=== PATIENT | female | born 1990 | race Two or more races ===

== ENCOUNTER 2016-11-21 00:33 | Emergency (ER) | payer SELFPAY ==
[~2016-11-21] VITALS: Ht 154.9 cm; Wt 90.7 kg
[2016-11-21 00:47] VITALS: BP 113/67
== END 2016-11-21 01:15 | disposition home or self-care (01) ==
LOC: ER 00:37
DX: J02.9 Acute pharyngitis, unspecified (principal)
CPT/HCPCS: 81025

== ENCOUNTER 2017-11-14 08:55 | Emergency (ER) | payer OTHER ==
[~2017-11-14] VITALS: Ht 157.5 cm; Wt 90.7 kg
[2017-11-14 09:12] VITALS: BP 124/87
== END 2017-11-14 11:34 | disposition home or self-care (01) ==
LOC: ER 08:55
DX: H66.93 Otitis media, unspecified, bilateral (principal); J03.90 Acute tonsillitis, unspecified
CPT/HCPCS: 71045

== ENCOUNTER 2018-06-13 19:25 | Emergency (ER) | payer OTHER ==
[~2018-06-13] VITALS: Ht 157.5 cm; Wt 90.7 kg
[2018-06-13 20:00] VITALS: BP 120/79
== END 2018-06-13 20:04 | disposition home or self-care (01) ==
LOC: ER 19:25
DX: J02.9 Acute pharyngitis, unspecified (principal); H66.92 Otitis media, unspecified, left ear

== ENCOUNTER 2020-05-16 19:36 | Emergency (ER) | payer MEDICAID, OTHER ==
[~2020-05-16] VITALS: Ht 167.6 cm; Wt 99.8 kg
[2020-05-16 20:38] VITALS: BP 138/81
== END 2020-05-16 23:15 | disposition home or self-care (01) ==
LOC: ER 19:36
DX: R05 Cough (principal); R06.02 Shortness of breath; R43.0 Anosmia; Z20.828 Contact with and (suspected) exposure to other viral communicable diseases
CPT/HCPCS: 36415; 71045; 87426

== ENCOUNTER 2025-04-08 16:20 | Emergency (ER) | payer MEDICAID ==
[~2025-04-08] VITALS: Ht 154.9 cm; Wt 110.0 kg
[2025-04-08 18:13] VITALS: BP 130/74; PULSE 87; RESP 16; TEMP 97.9; O2SAT 99
--- NOTE | 2025-04-08 18:23 | ED.PDOC ---
ADOBE DEVELOPER HPI Comments PT PRESENTED TO THE ER D/T VAGINAL DISCHARGE. PT REPORTS THAT SHE IS 14 WEEKS AND OVER THE PAST 2 DAYS HAS HAD A "BROWN DISCHARGE WHEN SHE WIPES" SHARP PAIN IN HIP CREASE. DENIES ANY CRAMPING OR BLEEDING. Chief Complaint: Vaginal Discharge Time Seen by MD: 18:10 Reviewed Notes: Nurses Notes, Medications, Allergies Allergies: Coded Allergies: NO KNOWN ALLERGIES (Unverified , 06/13/18) Home Meds Active Scripts Cephalexin Monohydrate (Cephalexin) 500 Mg Cap, 500 MG PO TID for 7 Days, #21 CAP Prov:ZAIDTAE ASSISTANT DIRECTOR OF RESIDENCE LIFE 04/08/25 Metronidazole (Flagyl) 500 Mg Tab, 1 TAB PO BID for 7 Days, #14 TAB Prov:TAE MAR ASSISTANT DIRECTOR OF RESIDENCE LIFE 04/08/25 Information Source: Patient Past Medical History PAST MEDICAL HISTORY: Denies Surgical History: Denies all surgeries PRESS CATCHER History: Denies all PRESS CATCHER Hx Family History Family History: Family hx of DM Social History Smoker: Non-Smoker Alcohol: Occasionally Drugs: Marijuana Lives In: Home All Other Systems: Reviewed and Negative (SEE HPI) Physical Exam General Appearance: No Apparent Distress, Normal HEENT: Pharynx Normal Neck: Full Range of Motion, Non-Tender Respiratory: Lungs Clear, No Respiratory Distress, Normal Breath Sounds Cardiovascular: No Edema, No JVD, No Murmur, No Gallop, Normal Peripheral Pulses, Regular Rate/Rhythm Breast Exam: Deferred Gastrointestinal: No Organomegaly, Non Tender, No Pulsatile Mass, Normal Bowel Sounds, Soft Genitalia: Deferred Pelvic: Deferred Rectal: Deferred Extremities: No calf tenderness, Normal capillary refill, Normal range of motion, No pedal edema Musculoskeletal : Apperance: Normal Neurologic: Alert, No Motor Deficits, Normal Affect, Normal Mood, No Sensory Deficits Cerebellar Function: Normal Reflexes: NOT DONE Skin: Dry, Normal Color, Warm Lymphatic: No Adenopathy Was a procedure done? Was a procedure done?: No Differential Diagnosis (PRESS CATCHER) Vaginal Bleeding: Cervicitis, Ectopic , Menorrhagia, Placenta Previa, UTI Vaginal Discharge: Vaginitis - Atrophic, Vaginitis - Bacterial, Vaginitis - Candidal, Vaginitis - Trichomonas X-Ray, Labs, Meds, VS Vital Signs Date Time Temp Pulse Resp B/P (MAP) Pulse Ox O2 Delivery O2 Flow Rate FiO2 04/08/25 18:13 87 16 99 Room Air 0 04/08/25 18:13 97.9 87 16 130/74 (92) 99 97.9 04/08/25 16:29 98.1 88 18 128/84 97 98.1 Lab Test 04/08/25 18:43 04/08/25 18:39 Range/Units White Blood Count 10.9 H 4.4-10.8 10^3/uL Red Blood Count 4.12 4.0-5.20 10^6/uL Hemoglobin 13.0 12.2-16.2 g/dL Hematocrit 37.7 36.0-46.0 % Mean Corpuscular Volume 91.6 80.0-100.0 fL Mean Corpuscular Hemoglobin 31.6 28.0-32.0 pg Mean Corpuscular Hemoglobin Concent 34.5 32.0-36.0 g/dL Red Cell Distribution Width 12.9 11.8-14.3 % Platelet Count 314 140-450 10^3/uL Mean Platelet Volume 7.6 6.9-10.8 fL Neutrophils (%) (Auto) 68.2 37.0-80.0 % Lymphocytes (%) (Auto) 23.0 10.0-50.0 % Monocytes (%) (Auto) 4.9 0.0-12.0 % Eosinophils (%) (Auto) 3.6 0.0-7.0 % Basophils (%) (Auto) 0.3 0.0-2.0 % Neutrophils # (Auto) 7.5 1.6-8.6 10 ^3/uL Lymphocytes # (Auto) 2.5 0.4-5.4 10 ^3/uL Monocytes # (Auto) 0.5 0-1.3 10 ^3/uL Eosinophils # (Auto) 0.4 0-0.8 10 ^3/uL Basophils # (Auto) 0 0-0.2 10 ^3/uL Nucleated Red Blood Cells 0.0 % Sodium Level 138 136-145 mmol/L Potassium Level 3.9 3.5-5.1 mmol/L Chloride Level 106 98-107 mmol/L Carbon Dioxide Level 23 20-31 mmol/L Anion Gap 9 5-15 Blood Urea Nitrogen 6 L 9-23 mg/dL Creatinine 0.60 0.550-1.02 mg/dL Glomerular Filtration Rate Calc 122 >90 mL/min BUN/Creatinine Ratio 10.0 10.0-20.0 Serum Glucose 101 74-106 mg/dL Calcium Level 9.2 8.7-10.4 mg/dL Total Bilirubin 0.2 0.2-1.0 mg/dL Aspartate Amino Transferase (AST) 13 13-40 U/L Alanine Aminotransferase (ALT) 11 7-40 U/L Alkaline Phosphatase 70 46-116 U/L Total Protein 6.8 5.7-8.2 g/dL Albumin 4.0 3.2-4.8 g/dL Beta HCG, Quantitative 00746.0 H 1.5-4.2 mIU/mL Urine Color Light-yellow Yellow Urine Clarity Clear Clear Urine pH 5.0 5.0-9.0 Urine Specific [place] 1.021 1.001-1.035 Urine Protein Negative Negative Urine Ketones Negative Negative Urine Blood Negative Negative /uL Urine Nitrite Negative Negative Urine Bilirubin Negative Negative Urine Urobilinogen Normal Negative mg/dL Urine Leukocyte Esterase Negative Negative /uL Urine RBC <1 0 - 4 /hpf Urine Microscopic WBC 1 0-5 /HPF Urine Squamous Epithelial Cells Few <5 /hpf Urine Bacteria Few H None Seen /hpf Urine Glucose Normal Normal mg/dL Chlamydia trachomatis (MARGARET) Pending Neisseria gonorrhoeae (MARGARET) Pending X-Ray, Labs, Meds, VS Comment IMPRESSION: Single live intrauterine with a composite gestational age of 15 weeks 5 days CBC and CMP within normal limits UA does show some bacteria we will treat for urinary tract infection. This is likely bacterial vaginosis pending STD panel patient is adamant she does not have an STD, treat prophylactically pending urine. Script trial of Keflex and Flagyl advised to take medication as prescribed side effects discussed. Patient states she has a follow up appo intment with her OBGYN next week on Saturday advised to call tomorrow and see if she can get a sooner appointment. Advised patient to return to the ER for increasing pain, or any vaginal bleeding and fevers patient indicates understanding and agrees with discharge plan of care. Time of 1ST Reevaluation: 18:10 Reevaluation 1ST: Unchanged Time of 2ND Reevaluation: 20:51 Reevaluation 2ND: Improved Patient Education/Counseling: Diagnosis, Treatment, Prognosis, Need For Follow Up Family Education/Counseling: No Family Present Departure 1 Departure Time of Disposition: 20:50 Impression: Primary Impression: Vaginitis Qualified Codes: N76.0 - Acute vaginitis Additional Impression: UTI (urinary tract infection) Qualified Codes: N30.00 - Acute cystitis without hematuria Disposition: HOME / SELF CARE / HOMELESS Condition: Stable e-Prescriptions Cephalexin Monohydrate (Cephalexin) 500 Mg Cap 500 MG PO TID for 7 Days, #21 CAP Prov: TAE MAR 04/08/25 Metronidazole (Flagyl) 500 Mg Tab 1 TAB PO BID for 7 Days, #14 TAB Prov: TAE MAR 04/08/25 Discharged With: Self Critical Care Note Critical Care Time?: No Stability Stability form required: TAE [place] Apr 08, 2025 18:23
[2025-04-08 18:56] LABS: Urine Protein, UAD Negative (Negative)
[2025-04-08 19:28] LABS: Hematocrit 37.7 % (36.0-46.0); Hemoglobin 13.0 g/dL (12.2-16.2); Mean Corpuscular Hemoglobin 31.6 pg (28.0-32.0); Mean Corpuscular Volume 91.6 fL (80.0-100.0); Nucleated Red Blood Cells % 0.0 %
[2025-04-08 19:38] LABS: Alkaline Phosphatase 70 U/L (46-116)
[2025-04-08 19:39] LABS: Alanine Aminotransferase 11 U/L (7-40); Albumin 4.0 g/dL (3.2-4.8); Anion Gap 9 (5-15); BUN/Creatinine Ratio 10.0 (10.0-20.0); Calcium 9.2 mg/dL (8.7-10.4); Carbon Dioxide 23 mmol/L (20-31); Chloride 106 mmol/L (98-107); Glucose 101 mg/dL (74-106); Potassium 3.9 mmol/L (3.5-5.1); Sodium 138 mmol/L (136-145); Total Protein 6.8 g/dL (5.7-8.2)
[2025-04-08 19:41] LABS: Bilirubin, Total 0.2 mg/dL (0.2-1.0); Blood Urea Nitrogen 6 mg/dL (9-23)
--- NOTE | 2025-04-08 20:32 | DVH ---
EXAM: US OB ULTRASOUND COMP GTR 14 WKS DATE OF SERVICE: 04/08/2025 07:51 PM ORDERING PHYSICIAN: TAE MAR REASON FOR EXAM: PAIN AND DISCHARGE/BLEEDING TECHNIQUE: Sonographic images were acquired of the rabbit uterus. COMPARISON: None FINDINGS: The single live intrauterine with the heart rate of 145 beats per minute. The MVP is 4.3 cm. the BPD is 3.3 cm, the head circumference is 12.3 cm, the abdominal circumference is 9.1 cm, and the femur length is 1.8 cm. The composite gestational age is 15 weeks 5 days. There is a 3.6 cm f ibroid versus contraction. The placenta is posterior. The presentation is transverse with the head on the right. The maternal cervical length is 3.2 cm and appears closed. IMPRESSION: Single live intrauterine with a composite gestational age of 15 weeks 5 days. End of Report
[2025-04-08] MEDS ORDERED: CEPH500C PO (20:50)
[2025-04-08] MEDS ORDERED: METR-344 PO (20:50)
[2025-04-09 18:07] LABS: Chlamydia Trachomatis, NAA Negative (Negative); Neisseria gonorrhoeae, NAA Negative (Negative)
== END 2025-04-08 21:12 | disposition home or self-care (01) ==
LOC: ER 16:20
DX: O23.592 Infection of other part of genital tract in pregnancy, second trimester (principal); O23.42 Unspecified infection of urinary tract in pregnancy, second trimester; N39.0 Urinary tract infection, site not specified; N89.8 Other specified noninflammatory disorders of vagina; Z3A.14 14 weeks gestation of pregnancy; Z79.899 Other long term (current) drug therapy
CPT/HCPCS: 36415; 76805; 80053; 81001; 84702; 85025

== ENCOUNTER 2025-07-27 18:49 | Observation (INO) | payer MEDICAID ==
--- NOTE | 2025-07-27 20:01 | DVHDS2 ---
Physician Discharge Progress N Final Diagnosis: testing for GDM, A1 Operations or Procedures: Operations or Procedures 35yo IUP@30.2wks VSS NST reactive per RN FKC/PTL/preE precautions reviewed Dr. Rowan consulted, agrees with POC. Condition on Discharge: Stable Disposition: Home Discharge Instructions: Diet: Consistent carbohydrate Activity: No Restrictions, As Tolerated Medications: see med list Follow Up Care: Specialist: f/u in 1 wk Discharge Statement: "Patient was advised to return to the ER or call 911 if any headaches, dizziness, shortness of breath, chest pain, abdominal pain, bleeding, fevers, or worsening of medical condition. Patient was counseled about treatment plan, medications, possible side effects, patientverbalized understanding. All questions were answered to the best of my ability. This discharge took greater then 30 minutes in planning, reviewing documentation, counseling the patient, and discussing with other team members." Visit Coding OBGYN Date of Service: Jul 27, 2025 Billing Provider: LALITHA ROBERTSON CNM SECURITY SYSTEM ENGINEER Common Visit Codes: 80827-[id number] OBS CARE (HIGH) SECURITY SYSTEM ENGINEER Procedure Codes: 53618-13- NON-STRESS TEST LALITHA ROBERTSON CNM Jul 27, 2025 20:01
== END 2025-07-27 19:56 | disposition home or self-care (01) ==
LOC: LDRP 18:49
PROVIDERS: ADMIT Obstetrics & Gynecology; ATTEND Obstetrics & Gynecology
DX: O24.419 Gestational diabetes mellitus in pregnancy, unspecified control (principal); Z3A.30 30 weeks gestation of pregnancy; Z98.890 Other specified postprocedural states
CPT/HCPCS: 59025; 81002; 82948; 82962; 94760; A4649; G0378

== ENCOUNTER 2025-08-03 06:39 | Observation (INO) | payer MEDICAID ==
[2025-08-03] MEDS ORDERED: MICO1KIT6 VA (10:56)
[2025-08-03] MEDS ORDERED: PREN-96 PO (10:56)
--- NOTE | 2025-08-03 18:02 | DVHDS2 ---
Physician Discharge Progress N Final Diagnosis: gdm 31wks Operations or Procedures: Operations or Procedures nst reactive reviwed,sono Condition on Discharge: Good Disposition: Home Discharge Instructions: Diet: Consistent carbohydrate Activity: No Restrictions, As Tolerated Medications: na Follow Up Care: Specialist: 3d Discharge Statement: "Patient was advised to return to the ER or call 911 if any headaches, dizziness, shortness of breath, chest pain, abdominal pain, bleeding, fevers, or worsening of medical condition. Patient was counseled about treatment plan, medications, possible side effects, patientverbalized understanding. All questions were answered to the best of my ability. This discharge took greater then 30 minutes in planning, reviewing documentation, counseling the patient, and discussing with other team members." Visit Coding OBGYN Date of Service: Aug 03, 2025 Billing Provider: HASMUKH MORALES DO CLARK DRIVER Common Visit Codes: 60130-[id number] INP/OBS CARE (HIGH) CLARK DRIVER Procedure Codes: 60437-91- NON-STRESS TEST HASMUKH MORALES DO Aug 03, 2025 18:02
== END 2025-08-03 11:03 | disposition home or self-care (01) ==
LOC: LDRP 09:56 → UNDOADMOB 09:56 → LDRP 10:04
PROVIDERS: ADMIT Obstetrics & Gynecology; ATTEND Obstetrics & Gynecology
DX: O24.419 Gestational diabetes mellitus in pregnancy, unspecified control (principal); Z3A.31 31 weeks gestation of pregnancy; Z98.890 Other specified postprocedural states; Z79.899 Other long term (current) drug therapy
CPT/HCPCS: 59025; 81002; 82948; 82962; A4649; G0378